=== PATIENT | male | born 1990 | race Caucasian/White ===

== ENCOUNTER 2016-06-15 15:14 | Emergency (ER) | payer OTHER ==
[~2016-06-15] VITALS: Ht 185.4 cm; Wt 99.8 kg
[~2016-06-15 15:14] MED LIST: AMOXICILLIN500 MG PO; BACTRIM DS 8001 TAB PO; DIVALPROEX SOD500 M2 PO; FIORICET 50-301 EACH PO; FLEXERIL 5MG TAB5 MG PO; IBU800 MG PO; PERCOCET 325 MG1 TA2 PO; TRAMADOL50 MG PO
[2016-06-15 15:34] VITALS: BP 167/105
--- NOTE | 2016-06-15 16:14 | ED NECK/BACK PAIN COMPLAINT ---
History of Present Illness General Chief Complaint: Low Back Pain/Injury Stated Complaint: LOW BACK PAIN RADIATING INTO L LEG Source: patient, old records Exam Limitations: no limitations Vital Signs & Intake/Output Vital Signs & Intake/Output Vital Signs Date Time Temp Pulse Resp B/P Pulse O2 O2 Flow FiO2 Ox Delivery Rate 06/15 1534 96.2 57 16 167/105 97 Room Air ED Intake and Output 06/16 0000 06/15 1200 Intake Total 0 Output Total Balance 0 Intake, Oral 0 Patient 220 lb Weight Allergies Coded Allergies: latex (RASH 10/21/15) tramadol (FELT CRAZY, FELT OVER HEATED AND WOKE UP ON FLOOR 06/15/16) Reconcile Medications Cyclobenzaprine HCl 10 MG TABLET 1 TAB PO TID PRN spasm Ibuprofen (Advil) 200 MG CAPSULE 1 CAP PO PRN PAIN/INFLAMMATION (Reported) Methylprednisolone. (Medrol) 4 MG TAB.DS.PK 1 DP PO AD inflammatio 6 on day 1 then reduce by one tablet daily until gone Triage Note: PT TO TRIAGE WITH C/O LOW BACK PAIN SINCE HURT HIS BACK A MONTH AGO WHILE SKATEBOARDING. PAIN RADIATES TO LLE. VSS. Triage Nurses Notes Reviewed? yes HPI: 26-year-old male who with complaints of approximately 4 weeks of low back pain, left-sided that is now radiating down to the left leg to the knee posterior aspect. It started after he was skateboarding, did not have any fall or injury but had pain during skateboarding and the next several days. About 2 weeks ago at work he was using a chain saw when he tripped falling forward, did not strike the ground but felt severe pain in his low back as he was tripping and twisting. He's had severe pain in the back does radiate down the leg ever since, he is tried on prophylactic relief. It is getting worse. No bowel or bladder incontinence no previous back pain or injury. No abdominal pain, no urinary symptoms. (GENEVIEVE YANG) Past History Travel History Traveled to [place] past 21 day No Medical History Any Pertinent Medical History? see below for history Neurological: seizure EENT: NONE Cardiovascular: NONE Respiratory: NONE Gastrointestinal: NONE Hepatic: NONE Renal: NONE Musculoskeletal: NONE Psychiatric: NONE Endocrine: NONE Blood Disorders: NONE Cancer(s): NONE COMPLIANCE AUDITOR/Reproductive: NONE History of MRSA: Yes History of VRE: No History of CDIFF: No Surgical History Surgical History: L ANKLE ABCESS IN MOUTH- I/D Psychosocial History Who do you live with Friend Services at Home None What is your primary language [place] Tobacco Use: Current Not Daily Illicit Drug Use: denies illicit drug use Family History Family History, If Any: MOTHER Relation not specified for: FH: diabetes mellitus Hx Contributory? No (GENEVIEVE YANG) Review of Systems Review of Systems Constitutional: Reports: see HPI. Eyes: Reports: no symptoms. Ears, Nose, Throat, Mouth: Reports: no symptoms. Respiratory: Reports: no symptoms. Cardiovascular: Reports: no symptoms. Gastrointestinal/Abdominal: Reports: no symptoms. Musculoskeletal: Reports: see HPI. Skin: Reports: no symptoms. Neurological/Psychological: Reports: no symptoms. All Other Systems: Reviewed and Negative (GENEVIEVE YANG) Physical Exam Physical Exam General Appearance: well developed/nourished Neck: normal inspection, supple, full range of motion Comments: Well-developed well-nourished no apparent distress. HEENT: Atraumatic, extraocular motion intact Neck: Supple, no lymphadenopathy Back: Tenderness to the paravertebral musculature on the left side lower lumbar region with mild spasming noted. No midline tenderness. No deformity or signs of trauma. There is no rashes present. Range of motion is limited secondary to pain Straight leg raise is positive on the left, well straight leg raise is positive with lifting of the right leg causes pain in the left side of lower back.. Bilateral lower extremities are neurovascularly intact with sensation and motor grossly intact. Gait is within normal limits Respiratory: No respiratory distress Abdomen: Soft nontender nondistended Extremities: No edema, full range of motion Neuro: Alert and oriented x3 Psych: Mood affect normal, normal memory normal judgment. Skin: Warm and dry, no rash on exposed skin (GENEVIEVE YANG) Progress Differential Diagnosis: AAA, aortic dissection, C spine injury, carotid dissection, cauda equina syn, herniated disc, myofascial strain, pyelo/UTI, sciatica, spinal cord inj, thoracic outlet syn, T/L spine injury, ureterolithiasis Plan of Care: Orders Procedure Date/time Status XRY-LUMBOSACRAL SPINE AP & LAT 06/15 1606 Active Diagnostic Imaging: Viewed by Me: Radiology Read. Discussed w/RAD: Radiology Read. Radiology Impression: PATIENT: THUY DELGADO PRESENT AGE: 26 PATIENT ACCOUNT NO: [id number] : 89 LOCATION: [facility] ORDERING PHYSICIAN: GENEVIEVE RUSSELL SERVICE DATE: 06/15/16 EXAM TYPE: RAD - XRY-LUMBOSACRAL SPINE AP & LAT EXAMINATION: XR LUMBOSACRAL SPINE CLINICAL INFORMATION: Back pain, left-sided leg pain. COMPARISON: None. TECHNIQUE: 2 views of the lumbosacral spine. FINDINGS: The vertebral bodies and posterior elements are normal. The disc spaces are preserved and the vertebral alignment is normal. The paraspinal soft tissues are normal. IMPRESSION: Unremarkable examination. DICTATED BY: PEDRO BALLARD MD DATE/TIME DICTATED:06/15/161629 SUPPLY CHAIN PROCUREMENT MANAGER:SHERMAN Comments: We'll place on Medrol Jonathan due to sciatica and muscle relaxer, recommend follow- up with spine surgery (GENEVIEVE YANG) Departure Departure Disposition: HOME OR SELF CARE Condition: Stable Clinical Impression Primary Impression: Sciatica of left side Referrals: ROBER STORM MD (PCP/Family) COLTON FITZGERALD MD Additional Instructions: Take medications for pain, spasm and inflammation as needed. Rest, warm compresses, gentle stretching. Follow-up with spine surgeon if no better in the next 5-7 days. Watch for worsening symptoms of pain, numbness or weakness down the leg, return with any concerns. Departure Forms: Customer Survey General Discharge Information Prescriptions: Current Visit Scripts Cyclobenzaprine HCl 1 TAB PO TID PRN spasm #15 TAB Methylprednisolone. (Medrol) 1 DP PO AD #1 DP 6 on day 1 then reduce by one tablet daily until gone (GENEVIEVE YANG) PA/WELFARE INTERVIEWER Co-Sign Statement Statement: ED Attending supervision documentation- [] I saw and evaluated the patient. I have also reviewed all the pertinent lab results and diagnostic results. I agree with the findings and the plan of care as documented in the PA's/WELFARE INTERVIEWER's documentation. [X] I have reviewed the ED Record and agree with the PA's/WELFARE INTERVIEWER's documentation. [] Additions or exceptions (if any) to the PAs/WELFARE INTERVIEWER's note and plan are summarized below: [] (ANMOL MORAN,TREVIN)
[2016-06-15] MEDS ORDERED: ADVIL200 M1 PO (16:29)
--- NOTE | 2016-06-15 16:35 | RADIOLOGY REPORT ---
EXAMINATION: XR LUMBOSACRAL SPINE CLINICAL INFORMATION: Back pain, left-sided leg pain. COMPARISON: None. TECHNIQUE: 2 views of the lumbosacral spine. FINDINGS: The vertebral bodies and posterior elements are normal. The disc spaces are preserved and the vertebral alignment is normal. The paraspinal soft tissues are normal. IMPRESSION: Unremarkable examination.
[2016-06-15] MEDS ORDERED: MEDROL4 M2 PO (16:40)
[2016-06-15] MEDS ORDERED: CYCLOBENZAPRINE10 M1 PO (16:40)
== END 2016-06-15 16:45 ==
LOC: ERH 15:14
DX: M54.42 Lumbago with sciatica, left side (principal)
CPT/HCPCS: 72100